=== PATIENT | male | born 2000 | race Caucasian/White ===

== ENCOUNTER → 2024-11-15 | Outpatient (CLI) | payer BC ==
--- NOTE | 2024-11-15 07:56 | US ---
EXAMINATION TYPE: US abdomen limited DATE OF EXAM: 11/15/2024 COMPARISON: NONE CLINICAL INDICATION: Male, 23 years old with history of R74.8 ABNORMAL LEVELS OF OTHER SERUM ENZYMES; Elevated liver enzymes, nausea TECHNIQUE: Grayscale and color Doppler imaging of the right upper quadrant was performed. FINDINGS: EXAM MEASUREMENTS: Liver Length: 15.9 cm Gallbladder Wall: 0.3 cm CBD: 0.5 cm Right Kidney: 11.1 x 4.0 x 4.9 cm Pancreas: visualized portions appear wnl Liver: wnl Gallbladder: no evidence of stones Evidence for sonographic Orellana's sign: no CBD: wnl Right Kidney: no evidence of hydronephrosis IMPRESSION: No suspicious intrahepatic mass or biliary dilatation. [facility], , 11/15/2024 7:54 AM
== END | disposition home or self-care (01) ==
LOC: RADUSWWP 07:08
PROVIDERS: ATTEND Family Medicine
DX: R74.8 Abnormal levels of other serum enzymes (principal)
CPT/HCPCS: 76705